=== PATIENT | male | born 1950 | race Caucasian/White ===

== ENCOUNTER 2016-12-29 18:37 | Inpatient (IN) | payer MEDICARE, OTHER ==
[2016-12-29] MEDS ORDERED: SODIUM CHLORIDE 0.9% 500 ML IV STA (18:54)
[2016-12-29] MEDS ORDERED: SODIUM CHLORIDE 0.9% 1,000 ML IV STA (18:54)
[2016-12-29] MEDS ORDERED: RX INFO: IV CONTRAST WAS GIVEN 1 EACH MISC MISCELLANE PRN (18:55)
[2016-12-29] MEDS ORDERED: METOCLOPRAMIDE 5 MG/ML 2 ML VIAL IVP STA (18:57)
[2016-12-29 19:08] LABS: Basophils % (A) 1 %; CH 31.6; CHCM 33.7; Eosinophils # (A) 0.2 k/uL (0-0.7); Eosinophils % (A) 3 %; HCT 43.4 % (39.0-53.0); HDW 2.69; HGB 14.8 gm/dL (13.0-17.5); Luc # (Auto) 0.07; Luc % (Auto) 1; Lymphocytes % (A) 19 %; MCH 32.2 pg (25.0-35.0); MCHC 34.2 g/dL (31.0-37.0); MCV 94.3 fL (80.0-100.0); Mean Platelet Volume 9.3; Monocytes # (A) 0.2 k/uL (0-1.0); Monocytes % (A) 3 %; Neutrophils % (A) 73 %; RDW 13.3 % (11.5-15.5); WBC 5.4 k/uL (3.8-10.6); WBC (Perox) 5.55
[2016-12-29 19:15] LABS: INR 1.1 (<1.1); Partial Thromboplastin Time 22.8 sec (22.0-30.0); Prothrombin Time 10.9 sec (9.0-12.0)
[2016-12-29 19:22] LABS: ALT 25 U/L (21-72); AST 17 U/L (17-59); Alkaline Phosphatase 59 U/L (38-126); Amylase 58 U/L (30-110); Anion Gap 9 mmol/L; Blood Urea Nitrogen 14 mg/dL (9-20); Calcium 7.6 mg/dL (8.4-10.2); Carbon Dioxide 24 mmol/L (22-30); Chloride 105 mmol/L (98-107); Glucose 150 mg/dL (74-99); Non-African American GFR(MDRD) >60 (>60 ml/min/1.73 sqM); Potassium 3.2 mmol/L (3.5-5.1); Sodium 138 mmol/L (137-145); Total Protein 5.5 g/dL (6.3-8.2)
[2016-12-29 19:27] LABS: Creatine Kinase 87 U/L (55-170)
[2016-12-29 19:40] LABS: Creatine Kinase MB 0.6 ng/mL (0.0-2.4); Troponin I <0.012 ng/mL (0.000-0.034)
--- NOTE | 2016-12-29 20:46 | CT ---
EXAMINATION TYPE: CT brain wo con DATE OF EXAM: 12/29/2016 8:40 PM COMPARISON: 06/03/2013 HISTORY: Syncopal episode today. CT DLP: 978.20 mGycm Automated exposure control for dose reduction was used. FINDINGS: There is mild cerebral cortical atrophy. There is no mass effect nor midline shift. There is no sign of intracranial hemorrhage. The calvarium is intact. There is mild mucosal thickening in the ethmoid sinus. There is mild mucosal thickening in the right frontal sinus. IMPRESSION: Mild atrophy. There is a changing pattern of frontal and ethmoid sinusitis compared to old exam. No a cute abnormality.
--- NOTE | 2016-12-29 20:54 | CT ---
EXAMINATION TYPE: CT abdomen pelvis w con DATE OF EXAM: 12/29/2016 8:43 PM COMPARISON: 06/03/2013 HISTORY: Nausea, vomiting and diarrhea. Abdominal pain. CT DLP: 1366.50 mGycm Automated exposure control for dose reduction was used. TECHNIQUE: Helical acquisition of images was performed from the lung bases through the pelvis. CONTRAST: Performed without Oral Contrast and with IV Contrast, patient injected with 100 mL of Omnipaque 300. FINDINGS: There is interstitial density at the posterior lung bases consistent with mild atelectasis. There is no pleural effusion. There are clips from cholecystectomy. Liver spleen pancreas appear normal. Bile ducts are not dilated . There is no adrenal mass. Kidneys show satisfactory contrast opacification. There is no hydronephro sis. There is no retroperitoneal adenopathy. Appendix appears normal. There is mild thickening of the wall of the sigmoid colon. Bladder distends smoothly. There is no sign of a pelvic mass. There is mi nimal fat stranding around the mid sigmoid colon. There is no free fluid in the pelvis. IMPRESSION: THERE IS MILD THICKENING OF THE WALL OF THE SIGMOID COLON CONSISTENT WITH NONSPECIFIC COLITIS THAT IS PROBABLY WORSE THAN LAST CT SCAN OF 06/03/2013. THERE IS CLEARING OF THE MILD FREE FLUID IN THE PELVI S SINCE THE OLD EXAM. MILD SUBSEGMENTAL ATELECTASIS AT THE LUNG BASES. ATHEROSCLEROTIC VASCULAR DISEASE.
[2016-12-29] MEDS ORDERED: LEVOFLOXACIN 750MG-D5W PMX 750 MG in DEXTROSE/WATER 1 150ML.BAG IVPB STA (21:29)
[2016-12-29] MEDS ORDERED: metroNIDAZOLE-NS PMX 500 MG in SALINE 1 100ML.BAG IVPB STA (21:29)
[2016-12-29] MEDS ORDERED: POTASSIUM CHLORIDE 20 MEQ in WATER FOR INJECTION 1 100ML.BAG IVPB STA (21:40)
--- NOTE | 2016-12-29 21:40 | ED ---
General Adult HPI - General Chief complaint: Syncope Stated complaint: altered mental status Time Seen by Provider: 12/29/16 18:50 Source: EMS Mode of arrival: EMS Limitations: no limitations - History of Present Illness Initial comments: This 58-year-old white mentally handicapped male presents from the assisted after he apparently had a syncopal episode. This occurred while he was sitting at the dinner table. He proceeded to have approximate 6 episodes of vomiting and multiple significant episodes of diarrhea. He received Zofran via EMS and still had several vomiting episodes in the ER. Just recently he had a slight amount of bright red blood in his stool. The EMS staff relate that he seemed to be in and out of consciousness. He is alert here but does not answer any significant questions due to his mental handicap. History is therefore limited. No other identifiable complaints or modifying factors. - Related Data Home Medications Medication Instructions Recorded Confirmed Allopurinol [Zyloprim] 100 mg PO HS@199912/29/16 12/29/16 Aspirin EC [Ecotrin Low Dose] 81 mg PO DAILY@69912/29/16 12/29/16 Furosemide [Lasix] 40 mg PO SUTUWEFRSA@69912/29/16 12/29/16 Irbesartan [Avapro] 300 mg PO DAILY@69912/29/16 12/29/16 OLANZapine [ZyPREXA] 5 mg PO BID@1500,199912/29/16 12/29/16 Omeprazole 20 mg PO DAILY@69912/29/16 12/29/16 Tamsulosin HCl [Flomax] 0.4 mg PO HS@199912/29/16 12/29/16 Vitamin B Complex 1 cap PO DAILY@69912/29/16 12/29/16 hydrALAZINE HCL [Apresoline] 50 mg PO TID@0700,1500,2200 12/29/16 12/29/16 Allergies Allergy/AdvReac Type Severity Reaction Status Date / Time Beta-Blockers Allergy Unknown Verified 12/29/16 19:02 (Beta-Adrenergic Bloc Review of Systems ROS Statement: Those systems with pertinent positive or pertinent negative responses have been documented in the HPI. ROS Other: All systems not noted in ROS Statement are negative. Past Medical History Past Medical History: Unable to Obtain History of Any Multi-Drug Resistant Organisms: Unobtainable Past Surgical History: Unable to Obtain Past Psychological History: Unable to Obtain Smoking Status: Unknown if ever smoked Past Alcohol Use History: Unable to Obtain Past Drug Use History: Unable to Obtain General Exam - General Exam Comments Initial Comments: GENERAL: The patient is well nourished and well hydrated. VITAL SIGNS: Heart rate, blood pressure, respiratory rate reviewed as recorded in nurse's notes. EYES: Pupils are round and reactive. Extraocular movements are intact. No conjunctival / lid redness or swelling. ENT: No external evidence of injury, swelling, or ecchymosis. Airway is patent. Throat is clear. NECK: Nontender. No swelling or evidence of injury. No subcutaneous emphysema. Trachea is midline. No thyroid mass. HEART: Regular rate and rhythm. Good peripheral pulses. LUNGS/CHEST: Breath sounds clear and equal bilaterally. No rales, rhonchi, or wheezes. No ecchymosis, subcutaneous emphysema, or tenderness. ABDOMEN: There may be some slight diffuse tenderness. No palpable masses or organomegaly. No peritoneal signs. No abdominal wall swelling or ecchymosis. EXTREMITIES: No extremity tenderness. Normal muscle tone and function. No thoracolumbar tenderness. NEUROLOGIC: Sensation is grossly intact. Cranial nerve exam reveals face is symmetrical, tongue is midline, speech is clear. SKIN: No abrasions or ecchymosis is noted. No induration or masses noted. PSYCHIATRIC: Alert but not oriented chronically. Limitations: no limitations Course Vital Signs 12/29/16 18:39 Temperature 98.2 F Pulse Rate 93 Respiratory 18 Rate Blood Pressure 115/56 O2 Sat by Pulse 94 L Oximetry Medical Decision Making - Medical Decision Making The patient was seen and examined. All diagnostics were reviewed. EKG shows a normal sinus rhythm at a rate of 79. There is no acute ST-T wave changes noted. There is evidence of a previous inferior infarct but not acute. They [place] interval is 239, QRS duration 92, and the QTc interval is 472. The patient had a computed tomography scan of the brain and this shows evidence of a sinusitis. Computed tomography scan of the abdomen and pelvis shows evidence of colitis. His potassium is slightly low at 3.2 and his glucose is elevated at 150. Remainder of labs are essentially within normal limits. His Hemoccult blood is positive. This felt as though he does have a colitis. He also has a GI bleed likely related to the colitis. Stool studies are ordered. Case is discussed with internal medicine and they're agreeable to admission. He receives IV Levaquin and Flagyl. - Lab Data Result diagrams: 12/29/16 18:47 12/29/16 18:47 Lab Results 12/29/16 12/29/16 12/29/16 Range/Units 18:47 18:47 18:47 WBC 5.4 (3.8-10.6) k/uL RBC 4.60 (4.30-5.90) m/uL Hgb 14.8 (13.0-17.5) gm/dL Hct 43.4 (39.0-53.0) % MCV 94.3 (80.0-100.0) fL MCH 32.2 (25.0-35.0) pg MCHC 34.2 (31.0-37.0) g/dL RDW 13.3 (11.5-15.5) % Plt Count 172 (150-450) k/uL Neutrophils % 73 % Lymphocytes % 19 % Monocytes % 3 % Eosinophils % 3 % Basophils % 1 % Neutrophils # 4.0 (1.3-7.7) k/uL Lymphocytes # 1.0 (1.0-4.8) k/uL Monocytes # 0.2 (0-1.0) k/uL Eosinophils # 0.2 (0-0.7) k/uL Basophils # 0.0 (0-0.2) k/uL PT (9.0-12.0) sec INR (<1.1) APTT (22.0-30.0) sec Sodium 138 (137-145) mmol/L Potassium 3.2 L (3.5-5.1) mmol/L Chloride 105 (98-107) mmol/L Carbon Dioxide 24 (22-30) mmol/L Anion Gap 9 mmol/L BUN 14 (9-20) mg/dL Creatinine 0.96 (0.66-1.25) mg/dL Est GFR (MDRD) Af Amer >60 (>60 ml/min/1.73 sqM) Est GFR (MDRD) Non-Af >60 (>60 ml/min/1.73 sqM) Glucose 150 H (74-99) mg/dL Calcium 7.6 L (8.4-10.2) mg/dL Total Bilirubin 1.0 (0.2-1.3) mg/dL AST 17 (17-59) U/L ALT 25 (21-72) U/L Alkaline Phosphatase 59 (38-126) U/L Total Creatine Kinase 87 (55-170) U/L CK-MB (CK-2) 0.6 (0.0-2.4) ng/mL CK-MB (CK-2) Rel Index 0.7 Troponin I <0.012 (0.000-0.034) ng/mL Total Protein 5.5 L (6.3-8.2) g/dL Albumin 3.1 L (3.5-5.0) g/dL Amylase 58 (30-110) U/L Lipase 73 (23-300) U/L Stool Occult Blood (Negative) 12/29/16 12/29/16 Range/Units 18:47 20:55 WBC (3.8-10.6) k/uL RBC (4.30-5.90) m/uL Hgb (13.0-17.5) gm/dL Hct (39.0-53.0) % MCV (80.0-100.0) fL MCH (25.0-35.0) pg MCHC (31.0-37.0) g/dL RDW (11.5-15.5) % Plt Count (150-450) k/uL Neutrophils % % Lymphocytes % % Monocytes % % Eosinophils % % Basophils % % Neutrophils # (1.3-7.7) k/uL Lymphocytes # (1.0-4.8) k/uL Monocytes # (0-1.0) k/uL Eosinophils # (0-0.7) k/uL Basophils # (0-0.2) k/uL PT 10.9 (9.0-12.0) sec INR 1.1 (<1.1) APTT 22.8 (22.0-30.0) sec Sodium (137-145) mmol/L Potassium (3.5-5.1) mmol/L Chloride (98-107) mmol/L Carbon Dioxide (22-30) mmol/L Anion Gap mmol/L BUN (9-20) mg/dL Creatinine (0.66-1.25) mg/dL Est GFR (MDRD) Af Amer (>60 ml/min/1.73 sqM) Est GFR (MDRD) Non-Af (>60 ml/min/1.73 sqM) Glucose (74-99) mg/dL Calcium (8.4-10.2) mg/dL Total Bilirubin (0.2-1.3) mg/dL AST (17-59) U/L ALT (21-72) U/L Alkaline Phosphatase (38-126) U/L Total Creatine Kinase (55-170) U/L CK-MB (CK-2) (0.0-2.4) ng/mL CK-MB (CK-2) Rel Index Troponin I (0.000-0.034) ng/mL Total Protein (6.3-8.2) g/dL Albumin (3.5-5.0) g/dL Amylase (30-110) U/L Lipase (23-300) U/L Stool Occult Blood Positive (Negative) Disposition Clinical Impression: GI bleed, Colitis, Sinusitis, Mental and behavioral problem in adult, Hypokalemia, Hyperglycemia, Diarrhea, Nausea and vomiting, Syncope Disposition: ADMITTED IP TO THIS [facility] Condition: Fair Time of Disposition: 21:40 Decision Date: 12/29/16 Decision Time: 21:40
[2016-12-29] MEDS ORDERED: NALOXONE 0.4 MG/ML 1 ML VIAL IV PRN (21:47)
[2016-12-29] MEDS ORDERED: ACETAMINOPHEN TAB 325 MG TAB PO PRN (21:47)
[2016-12-29] MEDS ORDERED: ONDANSETRON 4 MG/2 ML VIAL IVP PRN (21:47)
[2016-12-29] MEDS ORDERED: METOCLOPRAMIDE 5 MG/ML 2 ML VIAL IVP PRN (21:51)
[2016-12-29] MEDS ORDERED: HYDROmorphone 1 MG/ML 1 ML SYRINGE IVP PRN (21:52)
[2016-12-29] MEDS: hydrALAZINE HCL 50 MG TAB PO SCH (23:37)
[2016-12-29] MEDS: SODIUM CHLORIDE 0.9% 1,000 ML IV SCH (23:42)
[2016-12-30 06:11] LABS: Basophils % (A) 0 %; CH 32.2; CHCM 33.7; Eosinophils % (A) 0 %; HCT 40.8 % (39.0-53.0); HDW 2.56; HGB 13.2 gm/dL (13.0-17.5); Luc % (Auto) 1; Lymphocytes # (A) 0.5 k/uL (1.0-4.8); Lymphocytes % (A) 5 %; MCHC 32.3 g/dL (31.0-37.0); MCV 96.2 fL (80.0-100.0); Mean Platelet Volume 9.1; Monocytes # (A) 0.6 k/uL (0-1.0); Monocytes % (A) 5 %; Neutrophils # (A) 10.1 k/uL (1.3-7.7); Neutrophils % (A) 89 %; RBC 4.25 m/uL (4.30-5.90); RDW 13.7 % (11.5-15.5); WBC 11.3 k/uL (3.8-10.6); WBC (Perox) 12.55
[2016-12-30] MEDS: B COMPLEX-VIT C-VIT E-ZINC 1 EACH TAB PO SCH (06:22)
[2016-12-30] MEDS: LOSARTAN 50 MG TAB PO SCH (06:22)
[2016-12-30] MEDS: hydrALAZINE HCL 50 MG TAB PO SCH ×3 (06:22→21:03)
[2016-12-30] MEDS: FUROSEMIDE 40 MG TAB PO SCH (06:22)
[2016-12-30 06:32] LABS: Anion Gap 10 mmol/L; Blood Urea Nitrogen 19 mg/dL (9-20); Calcium 8.8 mg/dL (8.4-10.2); Carbon Dioxide 24 mmol/L (22-30); Chloride 103 mmol/L (98-107); Glucose 107 mg/dL (74-99); Non-African American GFR(MDRD) 55 (>60 ml/min/1.73 sqM); Potassium 4.4 mmol/L (3.5-5.1); Sodium 137 mmol/L (137-145)
[2016-12-30] MEDS: PANTOPRAZOLE 40 MG/10 ML VIAL IV SCH (09:34)
[2016-12-30] MEDS: metroNIDAZOLE-NS PMX 500 MG in SALINE 1 100ML.BAG IVPB SCH ×2 (09:38→22:17)
[2016-12-30] MEDS: SODIUM CHLORIDE 0.9% 1,000 ML IV SCH ×2 (14:14→20:42)
[2016-12-30 15:34] LABS: Appearance,Urine Clear (Clear); Bilirubin,Urine Negative (Negative); Glucose,Urine (UA) Negative (Negative); Ketones,Urine Negative (Negative); Leukocyte Esterase,Urine Negative (Negative); Nitrite,Urine Negative (Negative); PH, Urine 6.5 (5.0-8.0); Protein,Urine Negative (Negative); Specific Gravity,Urine 1.009 (1.001-1.035); UA Billing (MACRO vs. MICRO) CHEM; Urobilinogen,Urine <2.0 mg/dL (<2.0)
[2016-12-30] MEDS: OLANZapine 5 MG TAB PO SCH ×2 (15:41→20:42)
[2016-12-30] MEDS ORDERED: LORazepam 2 MG/ML SYRINGE IV PRN (19:36)
[2016-12-30] MEDS: ALLOPURINOL 100 MG TAB PO SCH (20:42)
[2016-12-30] MEDS: LEVOFLOXACIN 750MG-D5W PMX 750 MG in DEXTROSE/WATER 1 150ML.BAG IVPB SCH (20:42)
[2016-12-30] MEDS: TAMSULOSIN 0.4 MG CAP.ER.24H PO SCH (20:42)
[2016-12-31] MEDS: SODIUM CHLORIDE 0.9% 1,000 ML IV SCH ×3 (04:07→23:17)
[2016-12-31] MEDS: FUROSEMIDE 40 MG TAB PO SCH (06:21)
[2016-12-31] MEDS: LOSARTAN 50 MG TAB PO SCH (06:21)
[2016-12-31] MEDS: B COMPLEX-VIT C-VIT E-ZINC 1 EACH TAB PO SCH (06:21)
[2016-12-31] MEDS: hydrALAZINE HCL 50 MG TAB PO SCH ×3 (06:22→21:39)
[2016-12-31 06:37] LABS: Basophils % (A) 0 %; CH 31.8; CHCM 33.4; Eosinophils # (A) 0.1 k/uL (0-0.7); Eosinophils % (A) 2 %; HCT 37.7 % (39.0-53.0); HDW 2.53; HGB 12.3 gm/dL (13.0-17.5); Luc # (Auto) 0.12; Luc % (Auto) 2; Lymphocytes # (A) 0.9 k/uL (1.0-4.8); Lymphocytes % (A) 13 %; MCH 31.3 pg (25.0-35.0); MCHC 32.7 g/dL (31.0-37.0); MCV 95.9 fL (80.0-100.0); Mean Platelet Volume 9.6; Monocytes # (A) 0.5 k/uL (0-1.0); Monocytes % (A) 7 %; Neutrophils # (A) 4.9 k/uL (1.3-7.7); Neutrophils % (A) 75 %; RBC 3.93 m/uL (4.30-5.90); RDW 13.7 % (11.5-15.5); WBC 6.5 k/uL (3.8-10.6); WBC (Perox) 7.27
[2016-12-31 06:59] LABS: Anion Gap 8 mmol/L; Blood Urea Nitrogen 14 mg/dL (9-20); Calcium 8.6 mg/dL (8.4-10.2); Carbon Dioxide 26 mmol/L (22-30); Chloride 103 mmol/L (98-107); Glucose 106 mg/dL (74-99); Non-African American GFR(MDRD) >60 (>60 ml/min/1.73 sqM); Potassium 3.7 mmol/L (3.5-5.1); Sodium 137 mmol/L (137-145)
[2016-12-31] MEDS: PANTOPRAZOLE 40 MG/10 ML VIAL IV SCH (08:08)
[2016-12-31] MEDS: metroNIDAZOLE-NS PMX 500 MG in SALINE 1 100ML.BAG IVPB SCH ×2 (08:08→20:30)
--- NOTE | 2016-12-31 08:30 | HP ---
DATE OF ADMISSION: DATE OF SERVICE: 12/30/2016 CHIEF COMPLAINT: Change in mental status and syncope. HISTORY OF PRESENT ILLNESS: This 66-year-old gentleman with a past medical history of multiple medical problems, including history of benign prostatic hypertrophy, history of hypertension, history of gout, being followed by Dr. Shirley from [facility], was living in an [facility] home. In the [facility] home apparently the patient had some diarrhea for the last few times and the patient subsequently had at least 6 episodes of vomiting and the patient also apparently had a syncopal episode while the patient is sitting and the patient also had some . Patient was taken to [facility] and admitted for further evaluation and treatment. Patient unable to give a coherent history and most of the history is taken from my discussion with staff, discussion with family members and as well as review of the chart at this time. CT scan of the abdomen done showed mild thickening of the wall of the sigmoid colon, consideration of nonspecific colitis. GI consultation has been in progress also. There is no history of any trauma. PAST MEDICAL HISTORY: History of hypertension, history of gout. Medications prior to admission include: 1. Hydralazine 50 mg p.o. t.i.d. 2. Vitamin B complex 1 p.o. daily. 3. Flomax 0.4 q.h.s. 4. Omeprazole 20 mg daily. 5. Zyprexa 5 mg p.o. b.i.d. 6. Avapro 300 mg daily. 7. Lasix 40 mg Sunday, Sunday, Sunday, Sunday and Sunday. 8. Ecotrin 81 mg daily. 9. Zyloprim 100 mg p.o. daily. ALLERGIES: BETA BLOCKERS. Family history, social history and review of systems could not be taken because of the patient's baseline mental status as well as mental status changes. PHYSICAL EXAMINATION: Pulse is 74, blood pressure 130/63, respiration 18, temperature 97 degrees, pulse ox 97% on room air. HEENT: Conjunctivae normal. NECK: No jugular venous distention. CARDIOVASCULAR: S1 and S2, muffled. RESPIRATORY: Breath sounds diminished at the bases. A few rhonchi. No crackles. ABDOMEN: Soft. Mild diffuse tenderness present. No guarding, no rigidity. No mass palpable. LEGS: No edema, no swelling. NERVOUS SYSTEM: Higher function as mentioned. Moves all four limbs. No focal motor deficits. LYMPHATIC: No lymphadenopathy in the neck, axillae or groin. SKIN: No ulcer, rash or bleeding. LABS: WBC 11.3, hemoglobin 13.2, sodium 130, potassium 4.4. Creatinine is 1.3. UA noted. Influenza is negative. Stool OP is positive. ASSESSMENT: 1. Acute lower gastrointestinal bleeding with possible acute sigmoid colitis. 2. Nausea, diarrhea, possible acute gastroenteritis. 3. Increased WBC. 4. Increased random blood sugar. 5. Mild hypoalbuminemia. 6. Hypertension. 7. Gout. 8. History of benign prostatic hypertrophy. 9. History of gastroesophageal reflux disease. 10. FULL CODE. RECOMMENDATIONS AND DISCUSSION: In this 58-year-old gentleman who presented with multiple complex medical issues, we will monitor the patient closely. Continue the current medications, symptomatic treatment. Otherwise, at this time I recommend empiric antibiotics. Otherwise, Gastroenterology consultation. Monitor hemoglobin closely, IV fluids, Flagyl. Resume the home medications. Guarded prognosis because of multiple complex medical issues. Further recommendations to follow. Will hold Ecotrin and IV Protonix. Discussed with the family, who understands. Further recommendations to follow. Discussed with Dr. Zelaya also for possible colonoscopy. Once again, the prognosis is guarded. Further recommendations to follow. A copy of dictation forwarded to Dr. Shirley who is the primary physician. Clostridium difficile also has been requested. DVT prophylaxis. MTDD
[2016-12-31 13:43] VITALS: RESP 18
[2016-12-31] MEDS: OLANZapine 5 MG TAB PO SCH ×2 (15:57→20:30)
[2016-12-31] MEDS: ALLOPURINOL 100 MG TAB PO SCH (20:30)
[2016-12-31] MEDS: TAMSULOSIN 0.4 MG CAP.ER.24H PO SCH (20:30)
[2016-12-31] MEDS: LEVOFLOXACIN 750MG-D5W PMX 750 MG in DEXTROSE/WATER 1 150ML.BAG IVPB SCH (21:39)
--- NOTE | 2017-01-01 04:16 | P.CONS ---
History of Present Illness - Reason for Consult Consult date: 12/30/16 GI bleeding/Colitis - History of Present Illness The patient is a 66-year old male who was brought to the ER from [facility] because of syncope. The patient was reported to have multiple episodes of nausea, vomiting and diarrhea prior to this. He was found to have occult positive stools and CT of abdomen and pelvis showed thickening in the sigmoid. Patient has history of GERD. We are asked to see him for possible EGD and colonoscopy. 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. All information was obtained from his records, nursing staff and his daughter who was at the bedside. Review of Systems Constitutional: No reported fever, chills or unintentional weight loss Neurologic: No reported headaches, double vision or other sensory or motor changes. History of mental disability since Cardiopulmonary: No reported chest pains, SOB or palpitations. History of myocardial infarction Gastrointestinal: See PI above Genitourinary: No reported hematuria, dysuria or frequency. History of BPH Muskuloskeletal: No reported joint pains or swelling. History of gout Endocrine: No history of diabetes or thyroid disease Skin: No history of skin rashes Psychiatric: History of anxiety, no depression Past Medical History Past Medical History: Memory Impairment Additional Past Medical History / Comment(s): 2013 was in restroom and passed out, worked up for syncopal episode. Told he had colitis in 2012. Poor memory History of Any Multi-Drug Resistant Organisms: None Reported Past Surgical History: Cholecystectomy Past Anesthesia/Blood Transfusion Reactions: No Reported Reaction Past Psychological History: Anxiety Additional Psychological History / Comment(s): takes anti anxiety meds as needed. diagnosed at with moderate mental retardation Smoking Status: Never smoker Past Alcohol Use History: None Reported Past Drug Use History: None Reported - Past Family History Mother Family Medical History: Cancer Additional Family Medical History / Comment(s): breast cancer Father Family Medical History: Myocardial Infarction ([place]) Medications and Allergies Home Medications Medication Instructions Recorded Confirmed Type Allopurinol [Zyloprim] 100 mg PO HS@199912/29/16 12/29/16 History Aspirin EC [Ecotrin Low Dose] 81 mg PO DAILY@69912/29/16 12/29/16 History Furosemide [Lasix] 40 mg PO SUTUWEFRSA@69912/29/16 12/29/16 History Irbesartan [Avapro] 300 mg PO DAILY@0700 12/29/16 12/29/16 History OLANZapine [ZyPREXA] 5 mg PO BID@1500,199912/29/16 12/29/16 History Omeprazole 20 mg PO DAILY@69912/29/16 12/29/16 History Tamsulosin HCl [Flomax] 0.4 mg PO HS@199912/29/16 12/29/16 History Vitamin B Complex 1 cap PO DAILY@69912/29/16 12/29/16 History hydrALAZINE HCL [Apresoline] 50 mg PO TID@0700,1500,2200 12/29/16 12/29/16 History Allergies Allergy/AdvReac Type Severity Reaction Status Date / Time Beta-Blockers Allergy Unknown Verified 12/29/16 19:02 (Beta-Adrenergic Bloc Physical Exam Vitals: Vital Signs Temp Pulse Resp BP Pulse Ox 12/30/16 16:46 86 133/63 12/30/16 15:40 72 18 186/81 96 12/30/16 11:28 98.6 F 68 18 139/66 97 12/30/16 08:00 97.0 F L 74 18 132/63 96 12/30/16 04:00 79 18 135/66 99 Intake and Output 12/30/16 12/30/16 12/31/16 14:59 22:59 06:59 Intake Total 900 120 Output Total 500 Balance 900 -380 Intake: IV 900 Sodium Chloride 0.9% 1, 800 000 ml @ 100 mls/hr IV . Q10H VINNY Rx#:[id number] metroNIDAZOLE-NS PMX 500 100 mg In Saline 1 100ml.bag @ 100 mls/hr IVPB BID VINNY Rx#:[id number] Oral 120 Output: Urine 500 Other: Voiding Method Incontinent Urinal # Voids 1 # Bowel Movements 1 General: Appeared stated age, in NAD Head and neck: Normocephalic and atraumatic, conjunctivae pink and sclerae not icteric. No masses in the neck or tracheal shifts. No adenopathy or thyroimegaly Lungs: Clear to auscultation with no dullness to percussion Heart: Regular with no abnormal sounds, murmurs, gallops or friction rubs Abdomen: Soft, no masses, organomegalies or tenderness, BS positive Extremities: No clubbing, cyanosis or edema Neurologic: Alert, not communicative. Cranial nerves grossly intact. No gross sensory or motor abnormalities Results CBC & Chem 7: 12/31/16 06:19 12/31/16 06:19 Labs: Abnormal Lab Results - Last 24 Hours (Table) 12/30/16 12/30/16 Range/Units 05:50 05:50 WBC 11.3 H (3.8-10.6) k/uL RBC 4.25 L (4.30-5.90) m/uL Neutrophils # 10.1 H (1.3-7.7) k/uL Lymphocytes # 0.5 L (1.0-4.8) k/uL Creatinine 1.30 H (0.66-1.25) mg/dL Glucose 107 H (74-99) mg/dL Assessment and Plan Plan: 66-year old male with chronic reflux and history of nausea, vomiting and diarrhea with finding of occult positive stools and thickening of the sigmoid colon on CT. Patient presented with syncope but there is no significant drop in Hb. I discussed with his daughter the role of EGD and colonoscopy in his workup before he returns to [facility]. She wishes that we start with an upper endoscopy and keep colonoscopy as a contingency. Apparently, patient had a prior colonoscopy 3 -4 years ago and it was OK. Will monitor over the weekend and plan accordingly.
[2017-01-01 07:00] LABS: Anion Gap 8 mmol/L; Blood Urea Nitrogen 10 mg/dL (9-20); Calcium 8.6 mg/dL (8.4-10.2); Carbon Dioxide 24 mmol/L (22-30); Chloride 107 mmol/L (98-107); Glucose 96 mg/dL (74-99); Non-African American GFR(MDRD) >60 (>60 ml/min/1.73 sqM); Potassium 3.8 mmol/L (3.5-5.1); Sodium 139 mmol/L (137-145)
[2017-01-01] MEDS ORDERED: LACTATED RINGERS 1,000 ML IV SCH (07:00)
[2017-01-01 07:02] LABS: Basophils % (A) 1 %; CH 31.2; CHCM 33.5; Eosinophils # (A) 0.2 k/uL (0-0.7); Eosinophils % (A) 4 %; HCT 36.2 % (39.0-53.0); HDW 2.64; HGB 12.4 gm/dL (13.0-17.5); Luc # (Auto) 0.12; Luc % (Auto) 2; Lymphocytes # (A) 0.9 k/uL (1.0-4.8); Lymphocytes % (A) 16 %; MCH 31.9 pg (25.0-35.0); MCHC 34.1 g/dL (31.0-37.0); MCV 93.6 fL (80.0-100.0); Mean Platelet Volume 9.2; Monocytes # (A) 0.4 k/uL (0-1.0); Monocytes % (A) 7 %; Neutrophils % (A) 71 %; RBC 3.87 m/uL (4.30-5.90); RDW 13.1 % (11.5-15.5); WBC 5.6 k/uL (3.8-10.6); WBC (Perox) 6.11
[2017-01-01] MEDS: hydrALAZINE HCL 50 MG TAB PO SCH ×2 (08:28→15:09)
[2017-01-01] MEDS: B COMPLEX-VIT C-VIT E-ZINC 1 EACH TAB PO SCH (08:28)
[2017-01-01] MEDS: LOSARTAN 50 MG TAB PO SCH ×2 (08:28→16:04)
[2017-01-01] MEDS: PANTOPRAZOLE 40 MG/10 ML VIAL IV SCH (08:30)
[2017-01-01] MEDS: metroNIDAZOLE-NS PMX 500 MG in SALINE 1 100ML.BAG IVPB SCH (08:30)
--- NOTE | 2017-01-01 10:42 | PN ---
DATE OF SERVICE: 12/31/2016 This 66-year-old gentleman who was admitted with acute lower GI bleeding with possible acute sigmoid colitis also had nausea and diarrhea. Gastroenterology is following the patient closely for possible endoscopies. No chest pain or palpations. No fever. On exam, alert and oriented x3. Pulse 70, blood pressure 140/70, respirations 18, temperature 98.1, pulse ox 97% room air. HEENT: Conjunctivae normal. NECK: No JVD. CARDIOVASCULAR: S1 and S2 muffled. LUNGS: Breath sounds diminished at the bases. Few scattered rhonchi. ABDOMEN: Soft, nontender. No mass palpable. EXTREMITIES: Legs no edema. NERVOUS SYSTEM: No focal deficits. LABS: WBC 6.5, hemoglobin is 12.8. ASSESSMENT: 1. Acute lower gastrointestinal bleeding with possible acute sigmoid colitis. 2. Nausea, diarrhea, possible acute gastroenteritis. 3. Increased white blood cell count. 4. Increased random blood sugar. 5. Mild hypoalbuminemia with mild protein calorie malnutrition. 6. Hypertension. 7. Gout. 8. History of benign prostatic hypertrophy. 9. History of gastroesophageal reflux disease. 10. FULL CODE. RECOMMENDATIONS/DISCUSSION: Continue current medications. Current symptomatic treatment. Hemoglobin is stable. Continue with empiric treatment. Gastroenterology consultation. Possible endoscopy. Further recommendations to follow.
[2017-01-01] MEDS: SODIUM CHLORIDE 0.9% 1,000 ML IV SCH (11:34)
[2017-01-01] MEDS ORDERED: IV FLUID CONTINUATION 900 ML IV ONE (14:19)
[2017-01-01] MEDS ORDERED: PROPOFOL 10 MG/ML 20 ML VIAL IV ONE (14:20)
[2017-01-01] MEDS: OLANZapine 5 MG TAB PO SCH (15:09)
--- NOTE | 2017-01-01 15:10 | P.PCN ---
Date of Procedure: 01/01/17 Procedure(s) Performed: Procedure: Esophagogastroduodenoscopy and biopsy. Preoperative diagnosis: Nausea and vomiting and occult blood positive stools. Postoperative diagnosis: 1. Small sliding hiatal hernia with no obvious esophagitis or complicated reflux disease. 2. Mild antral gastritis. 3. Multiple biopsies obtained from the duodenum, antrum and esophagus. Preparation and sedation: Were provided by anesthesia. Brief clinical history: The patient is a 66-year old male who was brought to the ER from [facility] because of syncope. The patient was reported to have multiple episodes of nausea, vomiting and diarrhea prior to this. He was found to have occult positive stools and CT of abdomen and pelvis showed thickening in the sigmoid. Patient has history of GERD. We are asked to see him for possible EGD and colonoscopy. 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 The details are summarized in the history and physical and dictated consultations and progress notes. His family did not want him to go through the colonoscopy at this point. Procedure: With the patient on his left lateral decubitus position and after informed consent and adequate sedation, I passed the Olympus-GIF 160 video upper endoscope through the cricopharyngeus down the esophagus. GE junction was around 40-41 cm from the incisors and there was a very small sliding hiatal hernia. The esophagus did not show any erosions, ulcers, strictures or Alonso' s esophagus. There were no mucosal tears or bleeding. The endoscope was then passed into the stomach which was insufflated with air and inspected in detail including the retroflex view in the cardia. There was some mottling and erythema in the antrum but no ulcers or erosions. Pyloric channel, duodenal bulb, post bulbar area and descending duodenum appeared within normal limits. There were no ulcers or bleeding. I obtained multiple biopsies from the duodenum, antrum and esophagus then the endoscope was withdrawn. The patient tolerated the procedure well. Plan: I discussed with the family and caregivers the findings on this exam. Since the patient is improving, and since there were no significant findings on this exam today, I would advance his diet as tolerated. The family is interested in taking him home and keep any further workup as a contingency based on his course.
[2017-01-01 16:58] VITALS: BP 164/72; PULSE 70; TEMP 96.1
--- NOTE | 2017-01-02 12:51 | DS ---
DATE OF ADMISSION: 12/29/2016 DATE OF DISCHARGE: 01/01/2017 DATE OF SERVICE: 01/01/2017 FINAL DIAGNOSES: 1. Acute lower gastrointestinal bleeding with possible acute sigmoid colitis. 2. Nausea and diarrhea, possible acute gastroenteritis. 3. Increased WBC. 4. Increased random blood sugar. 5. Mild hypoalbuminemia with mild protein calorie malnutrition. 6. Hypertension. 7. Gout. 8. History of benign prostatic hypertrophy. 9. History of gastroesophageal reflux disease. 10. FULL CODE. DISCHARGE DISPOSITION: The patient will be discharged in a stable condition with guarded prognosis. HISTORY OF PRESENT ILLNESS: This is a 66-year-old gentleman with the past medical history of multiple medical problems admitted with acute lower GI bleeding. The patient was though to have acute sigmoid colitis, treated symptomatically. Dr. Zelaya performed EGD which did not show any acute severe abnormality. Labs are pending at this time. See the EGD results for further details. On exam, vitals are stable. CARDIOVASCULAR SYSTEM: S1, S2, muffled. ABDOMEN: Soft. NERVOUS SYSTEM: No focal deficits. As mentioned earlier labs stable with hemoglobin 12.4. So the patient will be discharged in a stable condition. DISCHARGE ADVICE: 1. Diet is cardiac. 2. Activity limited until followup. 3. Follow up with Dr. Shirley in 2 to 3 days. 4. CBC, BMP. 5. Follow up with Dr. Zelaya as advised. Medications will be: 1. Zyloprim 100 mg p.o. q.h.s. 2. Cipro 500 mg p.o. b.i.d. for 5 days. 3. Lasix 40 mg Sunday, Sunday, Sunday, Sunday, Sunday as before. 4. Avapro 300 mg p.o. daily. 5. Zyprexa 5 mg p.o. b.i.d. 6. Omeprazole 20 mg p.o. daily. 7. Flomax 0.4 q.h.s. 8. Vitamin B complex 1 p.o. daily. 9. Apresoline 50 mg p.o. t.i.d. 10. Flagyl 500 mg p.o. t.i.d.
== END 2017-01-01 17:00 | disposition home or self-care (01) | DRG 378 ==
LOC: EC 18:37 → 6SEL 21:40
PROVIDERS: ADMIT Internal Medicine; ATTEND Internal Medicine
PROC: 0DB68ZX Excision of Stomach, Via Natural or Artificial Opening Endoscopic, Diagnostic (ICD-10-PCS; 2017-01-01)
PROC: 0DB58ZX Excision of Esophagus, Via Natural or Artificial Opening Endoscopic, Diagnostic (ICD-10-PCS; 2017-01-01)
PROC: 0DB98ZX Excision of Duodenum, Via Natural or Artificial Opening Endoscopic, Diagnostic (ICD-10-PCS; principal; 2017-01-01 07:55)
DX: K92.2 Gastrointestinal hemorrhage, unspecified (principal); E44.1 Mild protein-calorie malnutrition; I10 Essential (primary) hypertension; K52.9 Noninfective gastroenteritis and colitis, unspecified; E87.6 Hypokalemia; K21.9 Gastro-esophageal reflux disease without esophagitis; K44.9 Diaphragmatic hernia without obstruction or gangrene; M10.9 Gout, unspecified; N40.0 Benign prostatic hyperplasia without lower urinary tract symptoms; F41.9 Anxiety disorder, unspecified; R73.9 Hyperglycemia, unspecified; J32.9 Chronic sinusitis, unspecified; R32 Unspecified urinary incontinence; Z79.899 Other long term (current) drug therapy; Z79.82 Long term (current) use of aspirin; Z88.8 Allergy status to other drugs, medicaments and biological substances; Z68.29 Body mass index [BMI] 29.0-29.9, adult; Z82.49 Family history of ischemic heart disease and other diseases of the circulatory system
CPT/HCPCS: 36415; 43239; 70450; 74177; 80048; 80053; 81003; 82150; 82272; 82550; 82553; 83690; 84484; 85025; 85610; 85730; 87502; 88305; 88342; 93005; 96361; 96365; 96366; 96375; 99285

== ENCOUNTER 2019-02-06 19:17 | Inpatient (IN) | payer MEDICARE, OTHER ==
[2019-02-06] MEDS ORDERED: VERAPAMIL 2.5 MG/ML 2 ML AMP ONE (19:36)
[2019-02-06] MEDS ORDERED: fentaNYL (PF) 50 MCG/ML 2 ML AMP ONE (19:36)
[2019-02-06] MEDS ORDERED: IV FLUID CONTINUATION 1,000 ML IV ONE (19:57)
[2019-02-06] MEDS ORDERED: NITROGLYCERIN-D5W PMX 50 MG in DEXTROSE/WATER 1 250ML.BAG IV ONE (19:57)
[2019-02-06] MEDS ORDERED: LIDOCAINE 1% INJ 10MG/ML (20 ML MDV) ONE (20:00)
[2019-02-06] MEDS ORDERED: LIDOCAINE 1% INJ 10MG/ML (20 ML MDV) SQ ONE (20:02)
[2019-02-06] MEDS ORDERED: fentaNYL (PF) 50 MCG/ML 2 ML AMP IV ONE (20:02)
[2019-02-06] MEDS ORDERED: MIDAZOLAM (PF) 2 MG/2 ML VIAL IV ONE (20:08)
[2019-02-06] MEDS ORDERED: CLOPIDOGREL 75 MG TAB ONE (20:21)
[2019-02-06] MEDS ORDERED: BIVALIRUDIN 250 MG in SODIUM CHLORIDE 0.9% 50 ML IV ONE (20:21)
[2019-02-06] MEDS ORDERED: BIVALIRUDIN BOLUS 250 MG/50 ML IV ONE (20:23)
[2019-02-06] MEDS ORDERED: CLOPIDOGREL 75 MG TAB PO ONE (20:24)
[2019-02-06] MEDS ORDERED: IOPAMIDOL-370 150ML BTL INJ ONE (20:28)
[2019-02-06] MEDS ORDERED: IOPAMIDOL-370 100ML BTL INJ ONE (20:32)
[2019-02-06] MEDS ORDERED: MAG HYDROX/AL HYDROX/SIMETH 30 ML CUP PO PRN (20:51)
[2019-02-06] MEDS ORDERED: ATROPINE SULFATE 0.1 MG/ML 10ML SYRINGE IV PRN (20:51)
[2019-02-06] MEDS ORDERED: NITROGLYCERIN SL TABS 0.4 MG TAB SUBLINGUAL PRN (20:51)
[2019-02-06] MEDS ORDERED: ZOLPIDEM 5 MG TAB PO PRN (20:51)
[2019-02-06] MEDS ORDERED: RX INFO: IV CONTRAST WAS GIVEN 1 EACH MISC MISCELLANE PRN (20:51)
[2019-02-06] MEDS ORDERED: SODIUM CHLORIDE 0.9% 1,000 ML IV SCH (21:00)
[2019-02-06] MEDS ORDERED: ATORVASTATIN 80 MG TAB PO SCH (21:00)
[2019-02-06 21:27] LABS: Glucose,Whole Blood 100 mg/dL (75-99)
--- NOTE | 2019-02-06 22:49 | CONS ---
CONSULTATION This patient is a 68-year-old male with a mental impairment who lives in a detention. He presented to the emergency room at [facility] with symptoms of chest discomfort. He had an EKG done there that showed a [address]-segment depression in lead II and aVF with poor R-wave progression. The patient is still having chest pain, but I am not able to obtain further history. I talked to his sister over the phone who tells me he has no prior cardiac history. There is a family history of coronary artery disease in his father. The patient has no history of diabetes or smoking. He continues to work and is reasonably active without any noted prior history of cardiac abnormalities. His coronary risk factors are remarkable for history of hypertension, hyperlipidemia. He is nondiabetic. MEDICATIONS: His medications at home include: 1. Allopurinol. 2. Abilify. 3. Lipitor 20 mg daily. 4. Vitamin D. 5. Lasix 40 mg daily. 6. Hydralazine 25 mg daily. 7. Avapro 300 mg daily. 8. Protonix. 9. Potassium. 10.Flomax. REVIEW OF SYSTEMS: Review of systems is not obtainable. PHYSICAL EXAMINATION: He is a 68-year-old male, alert, no apparent distress. Blood pressure 140/70 with a heart rate in the 80s. HEAD: Normocephalic. EYES: Sclerae anicteric. NECK: Good carotid upstroke. No bruit. No jugular venous distention. LUNGS: Clear to auscultation. HEART: Regular rhythm and rhythm. S1, S2. No S3. No S4. No murmur or rub. ABDOMEN: Soft, nontender. Positive bowel sounds. No organomegaly. EXTREMITIES: No edema. Intact distal pulses. EKG revealed a sinus mechanism, normal axis and intervals, with QS in leads III and aVF with mild ST-segment elevation. It appears to be more prominent compared with an EKG performed in October 2017. IMPRESSION: 1. Episode of chest discomfort with mild ST-segment elevation inferiorly. Unfortunately we are limited by the history because of the mental impairment. I have discussed those finding with the patient's sister, and I have recommended proceeding with coronary angiography to further assess his status and guide his treatment. 2. History of hypertension. 3. Mental impairment. 4. Hyperlipidemia. RECOMMENDATIONS: In view of findings and presentation, we will proceed with coronary angiography. The procedure was discussed with his sister, who is his guardian. Depending on the results of testing, further recommendation will be made. Thank you for this consult. Will follow with you. MMHILDAL / IJN: [id number] /
--- NOTE | 2019-02-06 23:04 | PTCA ---
PERCUTANEOUSTRANS CORORONARY ANGIOGRAPHY Mr. Weiss is 68-year-old male with known history of hypertension, hyperlipidemia, who presented with symptoms of chest discomfort and EKG changes consistent with inferior wall myocardial infarction, underwent cardiac catheterization, was found to have critical stenosis involving the mid right coronary artery. In view of that, recommendation was made regarding angioplasty and stenting have been made earlier her to his sister over the phone. Of note, the patient is mentally challenged. DESCRIPTION OF PROCEDURE: Using the 6-Lebanese E Franci right 1 and after cannulating the right coronary ostium a 0.014 balanced medium weight J-wire was advanced across the lesion and positioned distally, then a 3.0 x 15 mm Trek balloon was advanced. One inflation at 10 atmospheres was done. Following that, the balloon was removed and another 0.014 balanced medium weight J-wire was advanced next to the first one in a lillian fashion. Subsequently a 4.0 x 18 mm Xience Fozia stent was advanced, deployed and post dilated at 16 atmospheres. After the last inflation, after appropriate wait, the balloon and the guidewire were withdrawn back in the guiding catheter. Images were obtained and repeated. Those images revealed stable successful stenting. Following that, using the guiding catheter, the aortic valve was crossed and left ventricular end-diastolic pressure was calculated. Following that, catheter and sheaths were removed. Hemostasis was obtained with deployment of a TR band. There was no immediate complication. Patient is returned to his room in stable condition. Of note, the patient had no significant chest discomfort. He has some EKG changes that improved at the end procedure. He received Angiomax per protocol as well as oral loading dose of clopidogrel. RESULTS: Successful stenting of the mid right coronary artery with reduction of stenosis from 90% to 0%. RECOMMENDATIONS: Patient will be continued on aspirin, Plavix, beta blockers and chantal inhibitors and statins. The findings will be relayed to the sister when she arrives. Duration of procedure is 38 minutes. MMODL / IJN: [id number] /
--- NOTE | 2019-02-06 23:07 | CC ---
CARDIAC CATHETERIZATION REPORT Mr. Weiss is a 68-year-old male who is mentally challenged. He presented to [facility] with symptoms of chest discomfort. He had mild ST-segment elevation inferiorly. In view of that, he was transferred to [facility] to undergo emergent cardiac catheterization. I discussed the procedure, its risks and complication with his daughter, who is his legal guardian, over the phone. PROCEDURE DESCRIPTION: Patient was brought to the carpenter/labor. He received fentanyl and Benadryl, achieving moderate conscious sedated state. Using Xylocaine anesthesia and Seldinger technique, a a 6-Nepalese sheath was introduced in the right radial artery. Attempt to cannulate the right coronary artery using a 6-Nepalese FR4 guiding catheter was unsuccessful. Subsequently images of the left coronary system were obtained using a 5-Nepalese 3-1/2 bent left Orlin catheter. The right coronary artery was cannulated using an Ikari 6- Nepalese 1 right guiding catheter. After obtaining images of the coronary arteries, angioplasty and stenting of the right coronary artery was performed. Following that, using the catheter, the aortic valve was crossed and left ventricular end-diastolic pressure was calculated. Following that, catheter and sheaths were removed. Hemostasis was obtained with deployment of a TR band. There was no immediate complication. Patient was returned to his room in stable condition. FINDINGS: FLUOROSCOPY: There was severe calcification involving all the coronary arteries. LEFT MAIN: This is a large-sized vessel bifurcating into left circumflex and left anterior descending artery. Left main coronary artery has no evidence of high-grade stenosis. LEFT ANTERIOR DESCENDING ARTERY: This is a large-sized vessel reaching toward the apex with a wrap around the apex segment giving rise to a diagonal branch in mid segment that is diffusely diseased and small in caliber. The left anterior descending artery in the mid segment has a 30% plaque and distally has an 80% plaque. The rest of the vessel has no high-grade stenosis. LEFT CIRCUMFLEX: This is a nondominant vessel giving rise to 3 obtuse marginal branches. The third one is the largest in caliber. The left circumflex has diffuse intimal disease throughout its course of 30% to 50% stenosis. RIGHT CORONARY ARTERY: This is a heavily calcified vessel, dominant, bifurcating into PDA and posterolateral segment and branches. In the mid segment there is a 90% stenosis. The rest of the vessel has intimal disease without any evidence of high- grade stenosis. Left ventriculogram was not performed. HEMODYNAMICS: There was no gradient across the aortic valve. The left ventricular end- diastolic pressure was 12-14 mmHg. CONCLUSION: 1. Calcified coronary arteries. 2. Critical stenosis in the mid right coronary artery. 3. Significant disease in the distal LAD with mild to moderate disease in the left circumflex and proximal LAD. RECOMMENDATIONS: In view of findings and anatomy, I have recommended proceeding with angioplasty and stenting of the RCA. The procedure, its risks and complications have been discussed with his sister over the phone earlier. MMHILDAL / FATOUN: [id number] /
[2019-02-07 03:29] LABS: Calcium 8.7 mg/dL (8.4-10.2); Potassium 3.6 mmol/L (3.5-5.1)
[2019-02-07 06:16] LABS: HGB 12.8 gm/dL (13.0-17.5); MCH 31.2 pg (25.0-35.0); MCHC 32.8 g/dL (31.0-37.0); MCV 95.2 fL (80.0-100.0); Mean Platelet Volume 9.8; Platelet Count 110 k/uL (150-450); RDW 13.3 % (11.5-15.5)
--- NOTE | 2019-02-07 06:37 | P.HPIM ---
History of Present Illness H&P Date: 02/07/19 The patient is a 68 yo M with a PMH of developmental delay, HTN, HLD, resident of a adult foster care who presented to the ED at [facility] for complaints of substernal chest pain. History obtained from the chart since patient only giving single word answers. The case was discussed with the patient's guardian (sister) who had endorsed a family history of MS (in the father). The patient was noted to have dynamic EKG changes with mild ST- elevations. In light of the limited history, the decision was made to proceed with a cardiac catheterization. The patient underwent the procedure via R radial approach which revealed calcified coronary arteries along with critical stenosis of the mid RCA with subsequent stenting of the said artery. The patient was seen post-operatively in the MICU. He denied any complaints though history very limited since patient only giving one word answers. Review of Systems Pertinent positives and negatives as discussed in HPI, a complete review of systems was performed and all other systems are negative. Past Medical History Past Medical History: Chest Pain / Angina, Hypertension, Memory Impairment, Myocardial Infarction (MS) Additional Past Medical History / Comment(s): 2013 was in restroom and passed out, worked up for syncopal episode. Told he had colitis in 2012. Poor memory, hyperlip, gastritis, BPH, Gout, Cardiomyopathy Last Myocardial Infarction Date:: 02/06/2019 History of Any Multi-Drug Resistant Organisms: None Reported Past Surgical History: Cholecystectomy Past Anesthesia/Blood Transfusion Reactions: No Reported Reaction Past Psychological History: Anxiety Additional Psychological History / Comment(s): takes anti anxiety meds as needed. diagnosed at with moderate mental retardation Smoking Status: Never smoker Past Alcohol Use History: None Reported Past Drug Use History: None Reported - Past Family History Mother Family Medical History: Cancer Additional Family Medical History / Comment(s): breast cancer Father Family Medical History: Myocardial Infarction (MS) Medications and Allergies Home Medications Medication Instructions Recorded Confirmed Type Allopurinol [Zyloprim] 100 mg PO HS@199912/29/16 02/06/19 History Furosemide [Lasix] 40 mg PO SUTUWEFRSA@69912/29/16 02/06/19 History Irbesartan [Avapro] 300 mg PO DAILY@69912/29/16 02/06/19 History Tamsulosin HCl [Flomax] 0.4 mg PO DAILY@1700 12/29/16 02/06/19 History Vitamin B Complex 1 cap PO DAILY@0700 12/29/16 02/06/19 History ARIPiprazole [Abilify] 10 mg PO BID 02/06/19 02/06/19 History Atorvastatin [Lipitor] 20 mg PO HS 02/06/19 02/06/19 History Benztropine Mesylate [Cogentin] 1 mg PO BID 02/06/19 02/06/19 History Cholecalciferol [Vitamin D3 (25 1,000 unit PO DAILY@0700 02/06/19 02/06/19 History Mcg = 1000 Iu)] Pantoprazole [Protonix] 40 mg PO DAILY@0700 02/06/19 02/06/19 History Potassium Chloride [K-Tab ER] 10 meq PO DAILY 02/06/19 02/06/19 History hydrALAZINE HCL 25 mg PO TID@0700,1300,1800 02/06/19 02/06/19 History Allergies Allergy/AdvReac Type Severity Reaction Status Date / Time Beta-Blockers Allergy Unknown Verified 02/06/19 21:59 (Beta-Adrenergic Bloc Physical Exam Vitals: Vital Signs Temp Pulse Pulse Resp BP BP Pulse Ox 02/07/19 00:00 97.8 F 49 L 15 144/68 94 L 02/06/19 23:50 49 L 10 L 144/68 94 L 02/06/19 23:40 50 L 11 L 144/68 94 L 02/06/19 23:36 51 L 15 144/68 94 L 02/06/19 23:30 50 L 14 156/82 94 L 02/06/19 23:20 50 L 14 156/82 94 L 02/06/19 23:10 52 L 14 156/82 93 L 02/06/19 23:00 49 L 15 150/70 94 L 02/06/19 22:50 51 L 12 150/70 95 02/06/19 22:40 51 L 15 150/70 93 L 02/06/19 22:36 56 L 16 156/82 96 02/06/19 22:30 52 L 14 145/68 94 L 02/06/19 22:20 52 L 16 145/68 94 L 02/06/19 22:10 53 L 0 L 145/68 94 L 02/06/19 22:06 55 L 18 145/68 95 02/06/19 22:00 52 L 12 150/70 94 L 02/06/19 21:50 52 L 16 150/70 94 L 02/06/19 21:40 52 L 15 150/70 93 L 02/06/19 21:36 58 L 16 02/06/19 21:30 53 L 15 143/66 93 L 02/06/19 21:21 51 L 15 93 L 02/06/19 21:20 53 L 15 146/78 92 L 02/06/19 21:14 53 L 5 L 94 L 02/06/19 21:06 55 L 16 02/06/19 20:51 98.1 F 52 L 15 150/70 93 L Intake and Output 02/06/19 02/06/19 02/07/19 14:59 22:59 06:59 Intake Total 423.7 200 Output Total 0 0 Balance 423.7 200 Intake: IV 423.7 200 Sodium Chloride 0.9% 1, 200 200 000 ml @ 100 mls/hr IV . Q10H VINNY Rx#:[id number] Output: Urine 0 0 Other: # Voids 1 Weight 93 kg General: non toxic, no distress, appears at stated age, obese Derm: no unusual rashes/lesions no unusual ecchymoses, warm, dry Head: atraumatic, normocephalic, symmetric Eyes: EOMI, no lid lag, anicteric sclera, pupils equal round reactive to light ENT: Nose and ears atraumatic, no thrush, no pharyngeal erythema Neck: No thyromegaly, no cervical lymphadenopathy, trachea midline, supple Mouth: no lip lesion, mucus membranes moist Cardiovascular: S1S2 reg, no murmur, positive posterior tibial pulse bilateral, no edema, capillary refill less than 2 seconds Lungs: CTA bilateral, no rhonchi, no rales , no accessory muscle use Abdominal: soft, nontender to palpation, no guarding, no appreciable organomegaly, normal bowel sounds Ext: no gross muscle atrophy, muscle strength 5 out of 5 in all 4 extremities grossly, no contractures, Neuro: CN II-XI grossly intact, light touch intact all 4 extremities, finger to nose within normal limits, Psych: Oriented to self, knows he is in a hospital, unable to state the date , or name the hospital Results CBC & Chem 7: 02/07/19 05:40 02/07/19 03:01 Labs: Abnormal Lab Results - Last 24 Hours (Table) 02/06/19 Range/Units 21:15 POC Glucose (mg/dL) 100 H (75-99) mg/dL Thrombosis Risk Factor Assmnt - Choose All That Apply Each Factor Represents 1 point: Acute MS Each Risk Factor Represents 2 Points: Age 61-74 years Other congenital or acquired thrombophilia - If yes, enter type in comment: No Thrombosis Risk Factor Assessment Total Risk Factor Score: 3 Thrombosis Risk Factor Assessment Level: Moderate Risk Assessment and Plan Plan: STEMI, s/p cardiac catheterization w/ stenting of RCA -Cardiology recommendations appreciated -C/w Aspirin, Plavix, Statin, Beta-erma, MATT-I -Cardiac monitoring HTN -Resume home medications HLD -C/w Lipitor 80 DVT prophylaxis -IPCDs The patient is admitted with an anticipated less than 2 midnight stay for evaluation of STEMI. CODE STATUS:No Code Discussed with: Patient Anticipated discharge date: 02/08/[address]: [facility] A total of 40 minutes was spent on the care of this complex patient more than 50% of the time was spent in counseling and care coordination.
[2019-02-07 06:42] LABS: Calcium 8.7 mg/dL (8.4-10.2); Potassium 3.9 mmol/L (3.5-5.1)
[2019-02-07] MEDS ORDERED: PANTOPRAZOLE 40 MG TABLET PO SCH ×2 (07:00)
[2019-02-07] MEDS ORDERED: LOSARTAN 50 MG TAB PO SCH (07:00)
[2019-02-07 07:58] LABS: Phosphorus 3.7 mg/dL (2.5-4.5)
--- NOTE | 2019-02-07 08:20 | PN ---
PROGRESS NOTE Mr. Weiss is a 68-year-old male with history of hypertension, hyperlipidemia, mentally challenged who presented to [facility] with symptoms of chest discomfort and borderline ST-segment elevation inferiorly. Underwent cardiac catheterization was found to have critical stenosis involving the RCA and underwent stenting of that vessel. Hemodynamically he has been stable during the night. He has no symptoms of chest pain. He denies any dyspnea, although the reliability of the information is somewhat limited. He had no evidence of arrhythmia. He continues to be on aspirin once a day, Lipitor 80 mg daily, Plavix 75 mg daily, losartan 100 mg daily, and Protonix 40 mg daily in addition to Flomax. PHYSICAL EXAMINATION: Blood pressure running in the 140 to 160 with the heart rate in the high 40s. LUNGS: Clear. HEART: Regular rate and rhythm. S1, S2. No S3. No rub appreciated. ABDOMEN: Soft, nontender. EXTREMITIES: No edema. Right radial pulse intact. LAB DATA: Lab data revealed troponin less than 0.012 and 0.103. BUN and creatinine 19 and 1.13. 12.8. Cholesterol 89, LDL of 25. IMPRESSION: 1. Status post stenting of the RCA with borderline ST-segment changes. His enzymes are not consistent with an acute myocardial infarction at this point. 2. History of hypertension. 3. History of hyperlipidemia. RECOMMENDATION: We will continue present therapy. We will obtain echocardiogram with Doppler. I will add to his regimen amlodipine 5 mg daily to optimize his blood pressure. His activity level will be increased. He will be transferred to telemetry floor and depending on his progress, if he is stable, we expect he may be able to be discharged home in the next 24 hours. MMODL / IJN: [id number] /
[2019-02-07] MEDS ORDERED: ASPIRIN 81 MG PO SCH (09:00)
[2019-02-07] MEDS ORDERED: amLODIPine 5 MG TAB PO SCH (09:00)
[2019-02-07] MEDS ORDERED: ARIPiprazole 10 MG TAB PO SCH (09:00)
[2019-02-07] MEDS: BENZTROPINE MESYLATE 1 MG TAB PO SCH ×2 (09:28→20:30)
[2019-02-07] MEDS: ARIPiprazole 10 MG TAB PO SCH ×2 (09:28→20:36)
--- NOTE | 2019-02-07 11:18 | ECHOF ---
Referral Reason: MEASUREMENTS -------- HEIGHT: 162.6 cm WEIGHT: 93.0 kg BP: 166/73 RVIDd: 2.4 cm (< 3.3) IVSd: 1.1 cm (0.6 - 1.1) LVIDd: 3.9 cm (3.9 - 5.3) LVPWd: 1.3 cm (0.6 - 1.1) IVSs: 1.7 cm LVIDs: 2.2 cm LVPWs: 2.0 cm Ao Diam: 3.2 cm (2.0 - 3.7) AV Cusp: 2.0 cm (1.5 - 2.6) LA Diam: 3.8 cm (2.7 - 3.8) MV EXCURSION: 18.048 mm (> 18.000) MV EF SLOPE: 90 mm/s (70 - 150) EPSS: 0.7 cm MV E John: 0.94 m/s MV DecT: 222 ms MV A Jonh: 0.86 m/s MV E/A Ratio: 1.09 AR PHT: 384 ms RAP: 5.00 mmHg RVSP: 16.66 mmHg FINDINGS -------- Resting bradycardia (HR<60bpm). This was a technically good study. The left ventricular size is normal. There is borderline concentric left ventricular hypertrophy. Overall left ventricular systolic function is normal with, an EF between 55 - 60 %. The right ventricle is normal in size. Normal LA size by volume 22+/-6 ml/m2. The right atrial size is normal. Interatrial and interventricular septum intact. Aortic valve is trileaflet and is mildly thickened. There is mild aortic regurgitation. There is trace mitral regurgitation. Mild tricuspid regurgitation present. There is no evidence of pulmonary hypertension. The right v entricular systolic pressure, as measured by Doppler, is 16.66mmHg. Trace/mild (physiologic) pulmonic regurgitation. The aortic root size is normal. Normal inferior vena cava with normal inspiratory collapse consistent with estimated right atrial pre ssure of 5 mmHg. There is no pericardial effusion. CONCLUSIONS -------- 1. Resting bradycardia (HR<60bpm). 2. This was a technically good study. 3. The left ventricular size is normal. 4. There is borderline concentric left ventricular hypertrophy. 5. Overall left ventricular systolic function is normal with, an EF between 55 - 60 %. 6. The right ventricle is normal in size. 7. Normal LA size by volume 22+/-6 ml/m2. 8. The right atrial size is normal. 9. Interatrial and interventricular septum intact. 10. Aortic valve is trileaflet and is mildly thickened. 11. There is mild aortic regurgitation. 12. There is trace mitral regurgitation. 13. Mild tricuspid regurgitation present. 14. There is no evidence of pulmonary hypertension. 15. The right ventricular systolic pressure, as measured by Doppler, is 16.66mmHg. 16. Trace/mild (physiologic) pulmonic regurgitation. 17. The aortic root size is normal. 18. Normal inferior vena cava with normal inspiratory collapse consistent with estimated right atrial pressure of 5 mmHg. 19. There is no pericardial effusion. LEARNING DISABLED TEACHER: eDlla Haque RDCS
--- NOTE | 2019-02-07 11:52 | P.PN ---
Progress Note - Text Progress Note Date: 02/07/19 68-year-old male with PMH of developmental regular, hypertension, hyperlipidemia in adult foster care is admitted to the ED for chest pain. Patient has a guardian that is his sister. Troponin was less than 0.012, 0.103, 0.279. Patient had dynamic changes on EKG with mild ST elevation. Cardiac catheterization was done and patient underwent stenting in the mid RCA. Patient was seen and examined. No acute events overnight. Only giving one-word sentences. Denies any chest pain, shortness of breath or palpitations. Heart is normal S1-S2. No murmurs rubs or gallops. Bradycardia. ST elevation DE Bradycardia Developmental delay Hypertension Hyperlipidemia Plans to continue aspirin, Lipitor and Plavix. Echocardiogram shows normal EF and borderline diastolic dysfunction. Beta erma no started due to bradycardia. Blood pressure being managed with amlodipine and losartan. Hyperlipidemia being managed with Lipitor. Restart Abilify for developmental delay. Patient is pending clinical improvement. DC planning based on cardiology recommendations.
[2019-02-07] MEDS ORDERED: CLOPIDOGREL 75 MG TAB PO SCH (12:00)
[2019-02-07 13:06] VITALS: BMI 35.3
[2019-02-07] MEDS ORDERED: OLANZapine 5 MG TAB PO SCH (15:00)
[2019-02-07 15:55] LABS: Bacteria,Urine Rare /hpf; RBC,Urine >182 /hpf (0-5)
[2019-02-07 15:57] LABS: Appearance,Urine Bloody (Clear)
[2019-02-07 15:58] LABS: Color,Urine Light Red
[2019-02-07 18:30] LABS: Basophils % (A) 0 %; Eosinophils # (A) 0.1 k/uL (0-0.7); Eosinophils % (A) 2 %; HCT 43.5 % (39.0-53.0); HGB 14.2 gm/dL (13.0-17.5); Lymphocytes # (A) 0.8 k/uL (1.0-4.8); Lymphocytes % (A) 8 %; MCH 30.7 pg (25.0-35.0); MCHC 32.7 g/dL (31.0-37.0); MCV 94.1 fL (80.0-100.0); Mean Platelet Volume 9.7; Monocytes # (A) 0.4 k/uL (0-1.0); Monocytes % (A) 4 %; Neutrophils # (A) 7.5 k/uL (1.3-7.7); Neutrophils % (A) 84 %; Platelet Count 114 k/uL (150-450); RBC 4.62 m/uL (4.30-5.90); RDW 13.9 % (11.5-15.5)
[2019-02-07 18:32] LABS: Glucose,Whole Blood 112 mg/dL (75-99)
[2019-02-07 18:39] LABS: Partial Thromboplastin Time 24.4 sec (22.0-30.0); Prothrombin Time 10.4 sec (9.0-12.0)
[2019-02-07 18:41] LABS: Albumin 3.6 g/dL (3.5-5.0); Calcium 8.9 mg/dL (8.4-10.2); Potassium 3.7 mmol/L (3.5-5.1); Total Bilirubin 0.8 mg/dL (0.2-1.3); Total Protein 6.1 g/dL (6.3-8.2)
--- NOTE | 2019-02-07 18:41 | CT ---
EXAMINATION TYPE: CT brain wo con for TPA DATE OF EXAM: 02/07/2019 COMPARISON: 12/29/2016 HISTORY: Altered mental status. CT DLP: 1592.8 mGycm Automated exposure control for dose reduction was used. FINDINGS: There is a 6 x 4 x 5 cm area of mixed attenuation in the left parietal lobe with patchy high attenuat ion areas related to acute hemorrhage. There is probably 70% of the volume is acute hemorrhage. There is some effacement of the left lateral ventricle. There is no midline shift. The calvarium is intact . IMPRESSION: ACUTE LARGE CEREBRAL PARENCHYMAL HEMORRHAGE CONSISTENT WITH HEMORRHAGIC INFARCT THAT IS A CHANGE COMP ARED TO 12/29/2016 CT SCAN THIS EXAM WAS DISCUSSED WITH THE ICU NURSE ON THE FLOOR AT 6:40 PM.
[2019-02-07] MEDS: niCARdipine 20 MG in SODIUM CHLORIDE 0.9% 192 ML IV SCH ×2 (19:01→23:33)
[2019-02-07 19:50] LABS: Phosphorus 3.5 mg/dL (2.5-4.5)
[2019-02-07] MEDS ORDERED: ALLOPURINOL 100 MG TAB PO SCH (20:00)
[2019-02-07] MEDS ORDERED: TAMSULOSIN 0.4 MG CAP.ER.24H PO SCH (20:00)
[2019-02-07] MEDS ORDERED: ATORVASTATIN 40 MG TAB PO SCH (21:00)
--- NOTE | 2019-02-07 21:13 | P.PN ---
Progress Note - Text Progress Note Date: 02/07/19 Discussed the case with Ms Telles (Guardian) on [phone]. Informed her of the results of the CT scan. Informed her of the conversation that was had with the Neuro-typesetting machine tender. She noted that she would want her brother to be evaluated by a Neurosurgeon and that she is open to the possibility of surgical intervention if it improves his prognosis and understands that his DNR/DNI status would need to be changed to full-code. She is agreeable to transfer to a different facility for above said interventions. Discussed the above conversation with the Neuro- typesetting machine tender Dr Dany Giles ([phone]) who will accept the patient to [facility] under the neuro-typesetting machine tender service. The cardiology service was made-aware of the plan. Examined the patient in the MICU at the bedside. General: Non-toxic, in no acute distress, appears stated age, obese HEENT: NC/AT, anicteric sclerae, moist conjunctiva, no lid-lag, PERRLA Cardiovascular: S1/S2 wnl, no murmurs, rubs, or gallops Lungs: Clear to auscultation, normal respiratory effort, no accessory muscle use Abdominal: Soft, non-tender, non-distended, no guarding, rebound, or rigidity Skin: Warm, dry Extremities: No edema or contractures Psychiatric: Alert, oriented to person, knows he is in hospital though can't tell the name, not oriented to time, giving one-word answers Neuro: CN II-XII grossly intact, no facial droop, following some commands, Strength 2/5 in RUE and RLE, 5/5 on LUE and LLE, Speech intact, Sensation to light touch grossly intact throughout Will continue with Neuro-checks q1h. C/w Nicardipine infusion. Patient will undergo repeat CT head at new facility following transfer. DCed Aspirin and Plavix for now. Discussed with Dr Saenz the need for Neurology and Cardiology assessment at [facility] for risk stratification and management of recent stent in light of the acute hemorrhagic stroke. He stated that Cardiology services will be consulted at [facility] for further management. Provided nursing station information to Dr Saenz who noted that his mid-level provider will call and arrange everything for the transfer as soon as possible.
[2019-02-08 00:17] VITALS: BP 106/89; PULSE 61; RESP 7
[2019-02-08 00:28] VITALS: TEMP 98.4
--- NOTE | 2019-02-08 00:44 | P.DS ---
Providers Date of admission: 02/06/19 20:36 Expected date of discharge: 02/08/19 Attending physician: Sanya Martino MD Consults: 02/06/19 20:51 Consult Physician Routine Consulting Provider: [facility] Consult Reason/Comments: Post Interventional patient Do you want consulting provider notified?: Already Contacted Placement Type Exists?: Yes 02/07/19 18:40 Consult Physician Stat Consulting Provider: Eric Goodson Consult Reason/Comments: ICU management Do you want consulting provider notified?: Yes 02/07/19 19:26 Consult Physician Stat Consulting Provider: Cassandra Lombardo Consult Reason/Comments: Large hem stroke Do you want consulting provider notified?: Yes Primary care physician: Stated None Hospital Course: The patient is a 68 yo M with a PMH of developmental delay, HTN, HLD, resident of a adult foster care who presented to the ED at [facility] for complaints of substernal chest pain. History was obtained from the chart since patient only giving single word answers. The case was discussed with the patient's guardian (sister) who had endorsed a family history of ND (in the father). The patient was noted to have dynamic EKG changes with mild ST- elevations. In light of the limited history, the decision was made to proceed with a cardiac catheterization. The patient underwent the procedure via R radial approach which revealed calcified coronary arteries along with critical stenosis of the mid RCA with subsequent stenting of the said artery on 02/07/19. The patient was able to ambulate on the unit on 02/08/19 with no reported recurrence of chest pain. At 1740 on 02/08/19, the patient was noted to have R arm and leg weakness as he tried to eat his meal. The patient went underwent a CT brain which revealed an acute large cerebral parenchymal hemorrhage consistent with infarct. No midline shift was noted. The case was discussed with the patient's guardian who expressed her wishes for the patient to be evaluated by Neuro surgery for possible surgical interventions. Discussed the case with Dr Dany Giles who accepted the patient for transfer to [facility] Neuro-shift superintendent caustic cresylate service. The patient was also started on a Nicardipine infusion and all anti- platelets were held. Physical Examination General: Non-toxic, in no acute distress, appears stated age, obese HEENT: NC/AT, anicteric sclerae, moist conjunctiva, no lid-lag, PERRLA Cardiovascular: S1/S2 wnl, no murmurs, rubs, or gallops Lungs: Clear to auscultation, normal respiratory effort, no accessory muscle use Abdominal: Soft, non-tender, non-distended, no guarding, rebound, or rigidity Skin: Warm, dry Extremities: No edema or contractures Psychiatric: Alert, oriented to person, knows he is in hospital though can't tell the name, not oriented to time, giving one-word answers Neuro: CN II-XII grossly intact, no facial droop, following some commands, Strength 2/5 in RUE and RLE, 5/5 on LUE and LLE, Speech intact, Sensation to light touch grossly intact throughout Discharge diagnosis:Acute large hemorrhagic infarct; STEMI s/p cardiac cath w/ RCA stenting; HTN; HLD; Developmental delay A total of 40 minutes of time were spent preparing this complex discharge summary. Patient Condition at Discharge: Stable Plan - Discharge Summary Discharge Rx Participant: No New Discharge Prescriptions: No Action Allopurinol [Zyloprim] 100 mg PO HS@1999 Tamsulosin HCl [Flomax] 0.4 mg PO DAILY@1700 Irbesartan [Avapro] 300 mg PO DAILY@0700 Vitamin B Complex 1 cap PO DAILY@07 Furosemide [Lasix] 40 mg PO SUTUWEFRSA@07 ARIPiprazole [Abilify] 10 mg PO BID Benztropine Mesylate [Cogentin] 1 mg PO BID Cholecalciferol [Vitamin D3 (25 Mcg = 1000 Iu)] 1,000 unit PO DAILY@0700 Atorvastatin [Lipitor] 20 mg PO HS Pantoprazole [Protonix] 40 mg PO DAILY@0700 hydrALAZINE HCL 25 mg PO TID@0700,1300,1800 Potassium Chloride [K-Tab ER] 10 meq PO DAILY Discharge Medication List Allopurinol [Zyloprim] 100 mg PO HS@199912/29/16 [History] Furosemide [Lasix] 40 mg PO SUTUWEFRSA@0712/29/16 [History] Irbesartan [Avapro] 300 mg PO DAILY@0700 12/29/16 [History] Tamsulosin HCl [Flomax] 0.4 mg PO DAILY@1700 12/29/16 [History] Vitamin B Complex 1 cap PO DAILY@0700 12/29/16 [History] ARIPiprazole [Abilify] 10 mg PO BID 02/06/19 [History] Atorvastatin [Lipitor] 20 mg PO HS 02/06/19 [History] Benztropine Mesylate [Cogentin] 1 mg PO BID 02/06/19 [History] Cholecalciferol [Vitamin D3 (25 Mcg = 1000 Iu)] 1,000 unit PO DAILY@0700 02/06/19 [History] Pantoprazole [Protonix] 40 mg PO DAILY@0700 02/06/19 [History] Potassium Chloride [K-Tab ER] 10 meq PO DAILY 02/06/19 [History] hydrALAZINE HCL 25 mg PO TID@0700,1300,1800 02/06/19 [History] Follow up Appointment(s[facility] - 1-2 Days Eliseo Parker MD [REFERRING] - 1-2 Days Discharge Disposition: OTHER INSTITUTION NOT DEFINED
== END 2019-02-08 00:30 | disposition short-term general hospital (02) | DRG 247 ==
LOC: 2SICU 20:36 → EEVIPCON 20:36
PROVIDERS: ADMIT Internal Medicine; ATTEND Internal Medicine
PROC: B2111ZZ Fluoroscopy of Multiple Coronary Arteries using Low Osmolar Contrast (ICD-10-PCS; 2019-02-06)
PROC: 027034Z Dilation of Coronary Artery, One Artery with Drug-eluting Intraluminal Device, Percutaneous Approach (ICD-10-PCS; principal; 2019-02-06 19:21)
PROC: 4A023N7 Measurement of Cardiac Sampling and Pressure, Left Heart, Percutaneous Approach (ICD-10-PCS; 2019-02-06 19:21)
DX: I21.3 ST elevation (STEMI) myocardial infarction of unspecified site (principal); I42.9 Cardiomyopathy, unspecified; I62.9 Nontraumatic intracranial hemorrhage, unspecified; G81.91 Hemiplegia, unspecified affecting right dominant side; R00.1 Bradycardia, unspecified; E78.5 Hyperlipidemia, unspecified; F41.9 Anxiety disorder, unspecified; R62.50 Unspecified lack of expected normal physiological development in childhood; F71 Moderate intellectual disabilities; I10 Essential (primary) hypertension; I25.10 Atherosclerotic heart disease of native coronary artery without angina pectoris; N40.0 Benign prostatic hyperplasia without lower urinary tract symptoms; M10.9 Gout, unspecified; Z66 Do not resuscitate; Z79.899 Other long term (current) drug therapy; Z88.8 Allergy status to other drugs, medicaments and biological substances; Z90.49 Acquired absence of other specified parts of digestive tract; Z80.3 Family history of malignant neoplasm of breast; Z82.49 Family history of ischemic heart disease and other diseases of the circulatory system
CPT/HCPCS: 70450; 80048; 80053; 80061; 83735; 84100; 84484; 85025; 85027; 85610; 85730; 87086; 93306; C1874